=== PATIENT | male | born 1975 | race Two or more races ===

== ENCOUNTER 2019-11-15 06:00 | Emergency (ER) | payer MEDICAID ==
[~2019-11-15] VITALS: Ht 172.7 cm; Wt 63.0 kg
[2019-11-15 08:33] VITALS: BP 110/65
== END 2019-11-15 08:34 | disposition home or self-care (01) ==
LOC: ER 06:00
DX: L73.9 Follicular disorder, unspecified (principal); L01.02 Bockhart's impetigo
CPT/HCPCS: 99283